=== PATIENT | female | born 1990 | race Caucasian/White ===

== ENCOUNTER 2023-07-17 09:46 | Outpatient (CLI) | payer OTHER, SELFPAY ==
[2023-07-17 10:12] VITALS: BMI 21.1
--- NOTE | 2023-07-17 10:19 | PC.NURSE ---
1019-collected labs via venipuncture stick in left right ac; pt d/c to md appointment.
[2023-07-17 10:33] LABS: Basophils % 1.1 % (0.1-2.0); Eosinophils # 0.4 K/mm3 (0.0-0.4); Eosinophils % 10.4 % (0.1-12.0); Hematocrit 41.8 % (37.0-47.0); Hemoglobin 13.9 g/dL (12.2-16.2); Lymphocytes # 1.2 K/mm3 (0.7-4.5); Mean Corpuscular HGB Conc 33.3 g/dL (31.8-35.4); Mean Corpuscular Hemoglobin 29.6 pg (27.0-31.2); Mean Corpuscular Volume 88.8 fl (81-99); Mean Platelet Volume 7.9 fl (7.4-10.4); Monocytes # 0.3 K/mm3 (0.1-1.0); Monocytes % 7.5 % (1.7-9.3); Neutrophils # 2.1 K/mm3 (1.8-7.8); Platelet Count 240 K/mm3 (142-424); Red Cell Distribution Width 12.5 % (11.5-17.5); White Blood Count 4.1 K/mm3 (4.8-10.8)
[2023-07-17 10:39] LABS: Chloride 101 mmol/L (98-107); Sodium 139 mmol/L (136-145)
[2023-07-17 10:41] LABS: Alanine Aminotransferase 30 U/L (12-78); Alkaline Phosphatase 90 U/L (38-126); Aspartate Amino Transferase 46 U/L (14-36); Bilirubin,Total 0.5 mg/dl (0.2-1.3); Blood Urea Nitrogen 20 mg/dl (7-17); Carbon Dioxide 31 mmol/L (22.0-30.0); Creatinine Clearance Estimated 72 mL/min (50-200); Estimated Glomerular Filt Rate 73 ml/min (>60); GFR (African American) 88 ML/MIN (>60)
[2023-07-17 10:42] LABS: Albumin Level 4.8 g/dl (3.5-5.0); Albumin/Globulin Ratio 1.4 (1.1-1.8); Calcium 9.4 mg/dl (8.4-10.2); Globulin 3.4 g/dL (1.3-3.2); Glucose 96 mg/dl (74-100); Total Protein,Serum 8.2 g/dl (6.3-8.2)
[2023-07-17 10:45] LABS: Lactate Dehydrogenase 176 U/L (313-618)
== END 2023-07-17 10:21 | disposition home or self-care (01) ==
LOC: LAB 09:54 → INF 11:28
PROVIDERS: Visit Provider Internal Medicine Medical Oncology
DX: Z85.72 Personal history of non-Hodgkin lymphomas (principal)
CPT/HCPCS: 36415; 80053; 83615; 85025

== ENCOUNTER 2023-10-19 09:30 | Outpatient (CLI) | payer OTHER, SELFPAY ==
[2023-10-19 09:36] VITALS: BMI 21.5
[2023-10-19 10:01] LABS: Basophils # 0.1 K/mm3 (0-0.2); Basophils % 1.2 % (0.1-2.0); Eosinophils # 0.2 K/mm3 (0.0-0.4); Eosinophils % 4.6 % (0.1-12.0); Hematocrit 39.1 % (37.0-47.0); Hemoglobin 12.6 g/dL (12.2-16.2); Lymphocytes # 0.9 K/mm3 (0.7-4.5); Lymphocytes % 21.7 % (10-50); Mean Corpuscular HGB Conc 32.2 g/dL (31.8-35.4); Mean Platelet Volume 8.4 fl (7.4-10.4); Monocytes # 0.4 K/mm3 (0.1-1.0); Monocytes % 8.6 % (1.7-9.3); Neutrophils # 2.7 K/mm3 (1.8-7.8); Neutrophils % 63.8 % (37.0-80.0); Platelet Count 294 K/mm3 (142-424); Red Blood Count 4.35 M/mm3 (4.20-5.40); Red Cell Distribution Width 13.1 % (11.5-17.5); White Blood Count 4.2 K/mm3 (4.8-10.8)
[2023-10-19 10:12] LABS: Alanine Aminotransferase 61 U/L (12-78); Albumin Level 4.3 g/dl (3.5-5.0); Albumin/Globulin Ratio 1.3 (1.1-1.8); Alkaline Phosphatase 115 U/L (38-126); Anion Gap 8.5 mEq/L (5-15); Aspartate Amino Transferase 63 U/L (14-36); Bilirubin,Total 0.4 mg/dl (0.2-1.3); Blood Urea Nitrogen 23 mg/dl (7-17); Calcium 9.4 mg/dl (8.4-10.2); Carbon Dioxide 33 mmol/L (22.0-30.0); Chloride 102 mmol/L (98-107); Creatinine Clearance Estimated 82 mL/min (50-200); Estimated Glomerular Filt Rate 83 ml/min (>60); GFR (African American) 100 ML/MIN (>60); Globulin 3.4 g/dL (1.3-3.2); Glucose 87 mg/dl (74-100); Lactate Dehydrogenase 168 U/L (313-618); Potassium 4.5 mmoL/L (3.5-5.1); Sodium 139 mmol/L (136-145); Total Protein,Serum 7.7 g/dl (6.3-8.2)
--- NOTE | 2023-10-19 10:15 | PC.NURSE ---
0945-BLOOD DRAWN FROM RIGHT AC USING BUTTERFLY NEEDLE AT THIS TIME, PRIOR TO DR ELIZABETH TRISTAN
== END 2023-10-19 09:50 | disposition home or self-care (01) ==
LOC: INF 09:33
PROVIDERS: Visit Provider Internal Medicine Medical Oncology
DX: Z85.72 Personal history of non-Hodgkin lymphomas (principal)
CPT/HCPCS: 36415; 80053; 83615; 85025

== ENCOUNTER 2024-01-22 10:35 | Outpatient (CLI) | payer BC, SELFPAY ==
[2024-01-22 10:43] VITALS: BMI 21.3
[2024-01-22 11:00] LABS: Basophils # 0.2 K/mm3 (0-0.2); Basophils % 3.6 % (0.1-2.0); Eosinophils # 0.2 K/mm3 (0.0-0.4); Hemoglobin 13.5 g/dL (12.2-16.2); Lymphocytes # 1.2 K/mm3 (0.7-4.5); Mean Corpuscular HGB Conc 31.5 g/dL (31.8-35.4); Mean Corpuscular Volume 89.1 fl (81-99); Mean Platelet Volume 7.4 fl (7.4-10.4); Monocytes # 0.3 K/mm3 (0.1-1.0); Monocytes % 7.7 % (1.7-9.3); Neutrophils # 2.6 K/mm3 (1.8-7.8); Neutrophils % 58.7 % (37.0-80.0); Platelet Count 252 K/mm3 (142-424); Red Blood Count 4.82 M/mm3 (4.20-5.40); Red Cell Distribution Width 14.4 % (11.5-17.5); White Blood Count 4.4 K/mm3 (4.8-10.8)
[2024-01-22 11:06] LABS: Alanine Aminotransferase 41 U/L (12-78); Albumin Level 4.5 g/dl (3.5-5.0); Albumin/Globulin Ratio 1.3 (1.1-1.8); Alkaline Phosphatase 99 U/L (38-126); Anion Gap 14.1 mEq/L (5-15); Aspartate Amino Transferase 49 U/L (14-36); Bilirubin,Total 0.4 mg/dl (0.2-1.3); Blood Urea Nitrogen 30 mg/dl (7-17); Calcium 9.6 mg/dl (8.4-10.2); Carbon Dioxide 28 mmol/L (22.0-30.0); Chloride 101 mmol/L (98-107); Creatinine Clearance Estimated 72 mL/min (50-200); Estimated Glomerular Filt Rate 72 ml/min (>60); GFR (African American) 87 ML/MIN (>60); Globulin 3.5 g/dL (1.3-3.2); Glucose 97 mg/dl (74-100); Lactate Dehydrogenase 178 U/L (313-618); Potassium 4.1 mmoL/L (3.5-5.1); Sodium 139 mmol/L (136-145)
== END 2024-01-22 10:58 | disposition home or self-care (01) ==
LOC: INF 10:38
PROVIDERS: Visit Provider Internal Medicine Medical Oncology
DX: Z85.72 Personal history of non-Hodgkin lymphomas (principal)
CPT/HCPCS: 36415; 80053; 83615; 85025

== ENCOUNTER 2024-04-23 09:21 | Outpatient (CLI) | payer BC, SELFPAY ==
[2024-04-23 09:24] VITALS: BMI 21.3
--- NOTE | 2024-04-23 09:25 | PC.NURSE ---
0925-collected labs via venipuncture stick in left ac with butterfly needle;pt to d/c to oncology appointment
[2024-04-23 09:40] LABS: Basophils # 0.1 K/mm3 (0-0.2); Basophils % 1.6 % (0.1-2.0); Eosinophils # 0.3 K/mm3 (0.0-0.4); Eosinophils % 7.7 % (0.1-12.0); Hematocrit 47.6 % (37.0-47.0); Hemoglobin 14.8 g/dL (12.2-16.2); Lymphocytes % 25.5 % (10-50); Mean Corpuscular HGB Conc 31.1 g/dL (31.8-35.4); Mean Corpuscular Hemoglobin 29.2 pg (27.0-31.2); Mean Platelet Volume 7.7 fl (7.4-10.4); Monocytes # 0.3 K/mm3 (0.1-1.0); Monocytes % 7.9 % (1.7-9.3); Neutrophils # 2.3 K/mm3 (1.8-7.8); Neutrophils % 57.3 % (37.0-80.0); Platelet Count 274 K/mm3 (142-424); Red Blood Count 5.06 M/mm3 (4.20-5.40); Red Cell Distribution Width 13.6 % (11.5-17.5)
[2024-04-23 09:45] LABS: Albumin Level 4.8 g/dl (3.5-5.0); Chloride 105 mmol/L (98-107); Sodium 140 mmol/L (136-145)
[2024-04-23 09:46] LABS: Potassium 4.5 mmoL/L (3.5-5.1)
[2024-04-23 09:48] LABS: Alanine Aminotransferase 43 U/L (12-78); Albumin/Globulin Ratio 1.4 (1.1-1.8); Alkaline Phosphatase 115 U/L (38-126); Anion Gap 8.5 mEq/L (5-15); Aspartate Amino Transferase 56 U/L (14-36); Bilirubin,Total 0.6 mg/dl (0.2-1.3); Blood Urea Nitrogen 28 mg/dl (7-17); Carbon Dioxide 31 mmol/L (22.0-30.0); Creatinine Clearance Estimated 72 mL/min (50-200); Estimated Glomerular Filt Rate 72 ml/min (>60); GFR (African American) 87 ML/MIN (>60); Globulin 3.5 g/dL (1.3-3.2); Total Protein,Serum 8.3 g/dl (6.3-8.2)
[2024-04-23 09:49] LABS: Calcium 9.7 mg/dl (8.4-10.2); Glucose 94 mg/dl (74-100)
[2024-04-23 10:07] LABS: Lactate Dehydrogenase 184 U/L (313-618)
== END 2024-04-23 09:28 | disposition home or self-care (01) ==
LOC: INF 09:22
PROVIDERS: Visit Provider Internal Medicine Medical Oncology
DX: C83.31 Diffuse large B-cell lymphoma, lymph nodes of head, face, and neck (principal)
CPT/HCPCS: 36415; 80053; 83615; 85025

== ENCOUNTER 2024-10-22 09:23 | Outpatient (CLI) | payer BC, SELFPAY ==
--- NOTE | 2024-10-22 09:30 | PC.NURSE ---
0930-collected labs via venipuncture stick in right ac with butterfly needle;pt to oncology appt.
[2024-10-22 09:40] LABS: Eosinophils # 0.3 K/mm3 (0.0-0.4); Eosinophils % 7.4 % (0.1-12.0); Hematocrit 42.4 % (37.0-47.0); Hemoglobin 13.8 g/dL (12.2-16.2); Lymphocytes # 1.5 K/mm3 (0.7-4.5); Lymphocytes % 38.3 % (10-50); Mean Corpuscular HGB Conc 32.5 g/dL (31.8-35.4); Mean Corpuscular Hemoglobin 28.5 pg (27.0-31.2); Mean Corpuscular Volume 87.6 fl (81-99); Monocytes # 0.5 K/mm3 (0.1-1.0); Monocytes % 11.7 % (1.7-9.3); Neutrophils # 1.6 K/mm3 (1.8-7.8); Neutrophils % 41.3 % (37.0-80.0); Platelet Count 238 K/mm3 (142-424); Red Blood Count 4.84 M/mm3 (4.20-5.40); Red Cell Distribution Width 12.3 % (11.5-17.5); White Blood Count 3.9 K/mm3 (4.8-10.8)
[2024-10-22 10:02] LABS: Alanine Aminotransferase 58 U/L (12-78); Albumin Level 4.9 g/dl (3.5-5.0); Albumin/Globulin Ratio 1.8 (1.1-1.8); Alkaline Phosphatase 84 U/L (38-126); Anion Gap 7.6 mEq/L (5-15); Aspartate Amino Transferase 57 U/L (14-36); Bilirubin,Total 0.4 mg/dl (0.2-1.3); Blood Urea Nitrogen 28 mg/dl (7-17); Calcium 9.5 mg/dl (8.4-10.2); Carbon Dioxide 31 mmol/L (22.0-30.0); Chloride 103 mmol/L (98-107); Estimated Glomerular Filt Rate 72 ml/min (>60); GFR (African American) 87 ML/MIN (>60); Globulin 2.7 g/dL (1.3-3.2); Glucose 90 mg/dl (74-100); Lactate Dehydrogenase 175 U/L (313-618); Potassium 4.6 mmoL/L (3.5-5.1); Sodium 137 mmol/L (136-145); Total Protein,Serum 7.6 g/dl (6.3-8.2)
== END 2024-10-22 09:33 | disposition home or self-care (01) ==
LOC: INF 09:26
PROVIDERS: Visit Provider Internal Medicine Medical Oncology
DX: Z85.72 Personal history of non-Hodgkin lymphomas (principal)
CPT/HCPCS: 36415; 80053; 83615; 85025

== ENCOUNTER 2025-04-29 09:07 | Outpatient (CLI) | payer BC, SELFPAY ==
--- OUTSIDE RECORDS SUMMARY | 2025-04-29 09:28 | XMS_ITS | Clinical Summary ---
Author Organization [facility] Address [address] [place] [address] Care Team Providers Care Jail Manager Name Role Phone Nitza Huber APRN Primary Care Provider [phone] Allergies No known active allergies Medications escitalopram (LEXAPRO) 20 MG tablet Take 20 mg by mouth Daily. 05/01/2022 Active omeprazole (priLOSEC) 20 MG capsule Take 20 mg by mouth 2 (Two) Times a Day. 03/29/2022 Active cetirizine (zyrTEC) 10 MG tablet Take 1 tablet by mouth Daily. Active Probiotic Product (PROBIOTIC DAILY PO) Take by mouth. Active cefdinir (OMNICEF) 300 MG capsule Take 1 capsule by mouth 2 (Two) Times a Day. 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 Mammographic calcification f ound on diagnostic imaging of breast 07/01/2019 Delivered by section 07/24/2017 Resolved Problems Problem Noted Date Diagnosed Date Resolved Date 07/24/2017 07/24/2017 Family History Medical History Relation Name Comments Breast cancer Maternal Aunt 1 Aunt Age 35 Ovarian cancer Maternal Aunt 1 Aunt Breast cancer Maternal Aunt 2 Great Aunt Age 55 Ovarian cancer Maternal Grandmother Grandmother Age 4 0 Breast cancer Mother Godwin Roach Relation Name Status Comments Maternal Aunt 1 Aunt Maternal Aunt 2 Great Aunt Maternal Grandmother Grandmother Mother Godwin Roach Social History Tobacco Use Types Packs/Day Years Used Date Smoking Tobacco: Never Smokeless Tobacco: Never Tobacco Cessation:Counseling Given: Not Answered Alcohol Use Standard Drinks/Week Comments No 0 (1 standard drink = 0.6 oz pur e alcohol) PHQ-2 Answer Date Recorded Retired PHQ-9: Brief Depression Severity Measure Score 0 05/15/2022 Abuse Screen Answer Date Recorded Unsafe at Home or Work/School Not on file Feels Threatened by Someone? Not on file 05/2023 Does Anyone Keep You from Co ntacting Others or Doint Things Outside the Home? Not on file 06/29/2023 Physical Sign of Abuse Present Not on file 1 08/29/2022 Housing Stability Answer Date Recorded Current Living Arrangements Not on file 06/20 Potentially Unsafe Housing Conditions Not on sofia e 06/29/2023 Family and Community Support Answer Arthur e Recorded Help with Day-to-Day Activities Not on file 05/29/2023 Lonely or Isolated Not on file 05/29/2023 Employment Answer Date Recorded Do you want help finding or keeping work or a jamia b? Not on file 05/29/2023 Disabilities Answer Date Recorded Concentrating, Remembering, or Making Decisions Difficulty Not on file 06/29/2023 Doing Errands Independently Difficulty Not on fi le 06/29/2023 Education Answer Date Recorded Help with school or training? Not on file Preferred Language Not on file 06/29/2023 Comments No Sex and Gender Information Value Date Recorded Sex Assigned at Not on file Legal Sex Female 1:42 PM EDT Gender Identity Not on file Sexual Orientation Not on file Last Filed Vital Signs Vital Sign Reading Time Taken Comments Blood Pressure 105/71 07/03/2022 11:41 AM EST Pulse 76 07/03/2022 11:41 AM EST Temperature 36.3 C (97.3 F) 07/03/2022 11:41 AM EST Respiratory Rate 18 07/03/2022 11:41 AM EST Oxygen Saturation 98% 07/03/2022 11:41 AM EST Inhaled Oxygen Concentration - - Weight 56.3 kg (124 lb 1.6 oz) 07/03/2022 11:41 AM EST Height 154.9 cm (5' 1 ) 06/09/2022 7:02 AM EDT Body Mass Index 23.45 06/09/2022 7:02 AM EDT Plan of Treatment Health Maintenance Due Date Last Done Comments COVID-19 Vaccine (#1) 1995 Pneumococcal Vaccine 0-49 (1 of 2 - PCV) 2009 TDAP/TD VACCINES (1 - Tdap) 2009 ANNUAL PHYSICAL 07/23/2017 HEPATITIS C SCREENING 07/23/2017 Annual Gynecologic Pelvic and Breast Exam 05/10/2023 05/09/2022 INFLUENZA VACCINE 05/20/2025 Medical Devices Implanted Type Area Hog Sticker Device Identifier Shelf Expiration Date Model / Serial / Lot Grft Tiss Alloderm Rtm Perf [id number] 2.4mm/Thk .4mm - [id number] Implanted:Qty : 1 on 07/01/2019 by Choco Avila MD at [facility] Implant Right: Breast [employer] 04/19/2021 [id number] / / [id number] Expndr Tiss Brst F/Ht V/P Stl 133s Fv/T 400cc - [id number] - [id number] Implanted:Qty : 1 on 07/01/2019 by Choco Avila MD at [facility] Implant Right: Breast [employer] 12/05/2023 [id number] / [id number] / Expndr Tiss Brst F/Ht V/P Stl 133s Fv/T 400cc - [id number] - [id number] Implanted:Qty : 1 on 07/01/2019 by Choco Avila MD at [facility] Implant Left: Breast [employer] 10/09/2023 [id number] / [id number] / Grft Tiss Alloderm Rtm Perf [id number] 2.4mm/Thk .4mm - [id number] Implanted:Qty : 1 on 07/01/2019 by Choco Avila MD at [facility] Implant Left: Breast [employer] 04/19/2021 [id number] / / [id number] Brst Jessica Natrelle Inspira Smoth Xf/P 495cc - [id number] - [id number] Implanted:Qty : 1 on 10/09/2019 by Choco Avila MD at [facility] Implant Left: Breast [employer] 05/28/2022 [id number] / [id number] / [id number] Brst Jessica Natrelle Inspira 525cc - [id number] - [id number] Implanted:Qty : 1 on 10/09/2019 by Choco Avila MD at [facility] Implant Right: Breast [employer] 10/03/2023 [id number] / [id number] / [id number] Imp Mesh Prolite Poly 3x6in - [id number] Implanted:Qty : 1 on 10/09/2019 by Choco Avila MD at [facility] Implant Left: Breast [employer] 11/23/2023 [id number] / / [id number] Insurance Advance Directives * CPR (Attempt to Resuscitate) (Latest Code Status on File) Date Activated Date Inactivated Comments 07/01/2019 2:39 PM 07/02/2019 1:07 PM Question Answer Comments Code Status (Patient has no pulse and is not breathing): CPR (Attempt to Resuscitate) Medical Interventions (Patie nt has pulse or is breathing): Full * Full Code Date Activated Date Inactivated Comments 07/24/2017 2:54 PM 07/27/2017 7:21 PM * Full Code Date Activated Date Inactivated Comments 07/24/2017 10:55 AM 07/24/2017 2:54 PM Care Teams Jail Manager Relationship Specialty Start Date End Date Nitza Huber, ERIC [address] [place] [address] PCP - General Nurse Practitioner 06/07/22
--- OUTSIDE RECORDS SUMMARY | 2025-04-29 09:28 | XMS_ITS | Clinical Summary ---
Author Organization [facility] Address [address] [place] [address] Care Team Providers Care Set Up Mechanic [employer] Machine Name Role Phone Nitza Huber NP Primary Care Provider [phone] Social History Tobacco Use Types Packs/Day Years Used Date Smoking Tobacco: Never Assessed Comments Unknown Sex and Gender Information Value Date Recorded Sex Assigned at Not on file Legal Sex Female 4:41 PM EDT Gender Identity Not on file Sexual Orientation Not on file Plan of Treatment Health Maintenance Due Date Last Done Comments HIV Screening 1990 Hepatitis C Screening 1990 MMR Vaccines (1 of 1 - Standard series) 1991 Varicella Vaccines (1 of 2 - 13+ 2-dose series) 2003 Hepatitis B Screening 2008 DTaP/Tdap/Td Vaccines (1 - Tdap) 2009 Hepatitis B Vaccines (1 of 3 - 19+ 3-dose series) 2009 Pap Smear 2011 Cervical Cancer Screening 2020 HPV/Cotest 2020 Depression Risk Screening 08/20/2024 SDOH Screening 08/20/2024 COVID-19 Vaccine (4 - 2024-2 6 season) 2025 07/07/2021, 11/19/2020, 10/22/2020 Influenza Vaccine (#1) 2025 , 06/10/2020, 06/22/2017 Zoster Vaccines (1 of 2) 2040 HIB Vaccines Aged Out No longer eligi ble based on patient's age to complete this topic HPV Vaccines Aged Out No longer eligi ble based on patient's age to complete this topic Hepatitis A Vaccines Aged Out No long er eligible based on patient's age to complete this topic IPV Vaccines Aged Out No longer eligi ble based on patient's age to complete this topic Meningococcal B Vaccine Aged Out No l onger eligible based on patient's age to complete this topic Meningococcal Vaccine Aged Out No michael annmarie eligible based on patient's age to complete this topic Pneumococcal Vaccine Aged Out No long er eligible based on patient's age to complete this topic Rotavirus Vaccines Aged Out No longer eligible based on patient's age to complete this topic Care Teams Set Up Mechanic [employer] Machine Relationship Specialty Start Date End Date Nitza Huber NP [address] [place] [address] PCP - General 07/29/21
[2025-04-29 09:30] LABS: Hematocrit 42.3 % (37.0-47.0); Hemoglobin 13.9 g/dL (12.2-16.2); Immature Granulocytes % 0.2 %; Mean Corpuscular HGB Conc 32.9 g/dL (31.8-35.4); Mean Corpuscular Hemoglobin 29.8 pg (27.0-31.2); Mean Corpuscular Volume 90.8 fl (81-99); Nucleated Red Blood Cells % 0 %; Platelet Count 219 K/mm3 (142-424); Red Blood Count 4.66 M/mm3 (4.20-5.40); Red Cell Distribution Width-SD 39.2 fL; White Blood Count 4.7 K/mm3 (4.8-10.8)
[2025-04-29 09:38] LABS: Alanine Aminotransferase 41 U/L (12-78); Albumin Level 4.6 g/dl (3.5-5.0); Albumin/Globulin Ratio 1.5 (1.1-1.8); Alkaline Phosphatase 94 U/L (38-126); Anion Gap 10.4 mEq/L (5-15); Aspartate Amino Transferase 51 U/L (14-36); Bilirubin,Total 0.6 mg/dl (0.2-1.3); Blood Urea Nitrogen 24 mg/dl (7-17); Calcium 10.2 mg/dl (8.4-10.2); Carbon Dioxide 31 mmol/L (22.0-30.0); Chloride 102 mmol/L (98-107); Creatinine,Serum 0.90 mg/dl (0.52-1.04); Estimated Glomerular Filt Rate 72 ml/min (>60); GFR (African American) 87 ML/MIN (>60); Globulin 3.0 g/dL (1.3-3.2); Glucose 100 mg/dl (74-100); Potassium 4.4 mmoL/L (3.5-5.1); Sodium 139 mmol/L (136-145); Total Protein,Serum 7.6 g/dl (6.3-8.2)
== END 2025-04-29 09:20 | disposition home or self-care (01) ==
LOC: LAB 09:08 → INF 09:13
PROVIDERS: Visit Provider Internal Medicine Medical Oncology
DX: R79.9 Abnormal finding of blood chemistry, unspecified (principal); Z85.72 Personal history of non-Hodgkin lymphomas
CPT/HCPCS: 36415; 80053; 83615; 85025